=== PATIENT | female | born 1985 | race Caucasian/White ===

== ENCOUNTER → 2019-07-30 | Outpatient (CLI) | payer BC ==
[~2019-07-30] MED LIST: ALBU90OI; HYDACE5 PO; IBUP600 PO; META800 PO; NAPR500 PO; PENVK500 PO; PROM25 PO; RXOXYACE PO; TRAM50 PO
[2019-07-31 15:07] LABS: HPV 16 Negative (Negative); HPV 18 Negative (Negative); HPV OTHER HR TYPES Negative (Negative)
== END | disposition home or self-care (01) ==
LOC: LAB 12:48 → LAB SHORT 12:48
PROVIDERS: Obstetrics & Gynecology
DX: Z12.4 Encounter for screening for malignant neoplasm of cervix (principal)
CPT/HCPCS: 87624; G0123

== ENCOUNTER 2019-11-13 22:38 | Inpatient (IN) | payer BC ==
[~2019-11-13] VITALS: Ht 165.1 cm; Wt 121.2 kg
[2019-11-13] MEDS ORDERED: HYDROCODONE-AC1 EAC1 PO (23:51)
[2019-11-14 01:25] LABS: BASOPHILS ABSOLUTE AUTO 0.05 K/mm3 (0.00-0.23); BASOPHILS PERCENT AUTO 0 % (0-2); EOSINOPHILS ABSOLUTE AUTO 0.13 K/mm3 (0.00-0.68); EOSINOPHILS PERCENT AUTO 1 % (0-6); Hemoglobin 14.1 g/dL (11.5-16.0); IMMATURE GRAN ABSOLUTE AUTO 0.04 K/mm3 (0.00-0.10); IMMATURE GRAN PERCENT AUTO 0 % (0-1); LYMPHOCYTES ABSOLUTE AUTO 1.87 K/mm3 (0.84-5.20); LYMPHOCYTES PERCENT AUTO 16 % (21-46); MONOCYTES ABSOLUTE AUTO 0.71 K/mm3 (0.16-1.47); MONOCYTES PERCENT AUTO 6 % (4-13); Mean Corpuscular HGB 29.6 pg (26.0-34.0); Mean Corpuscular Volume 92 fL (80-100); Mean Platelet Volume 10.4 fL (9.1-12.4); NEUTROPHILS ABSOLUTE AUTO 8.79 K/mm3 (1.96-9.15); NEUTROPHILS PERCENT AUTO 76 % (41-73); Platelet Count 190 K/mm3 (150-400); RDW Coefficient Variation 13.1 % (11.7-14.2); RDW Standard Deviation 44.6 fL (35.1-46.3); Red Blood Cell Count 4.77 M/mm3 (3.80-5.20); White Blood Cell Count 11.59 K/mm3 (4.00-11.30)
[2019-11-14 01:43] LABS: Alanine Aminotransfer (ALT/SGP 27 U/L (12-78); Albumin, Blood 3.7 g/dL (3.4-5.0); Albumin/Globulin Ratio 0.9 (0.8-1.8); Alk Phos 68 U/L (50-136); Anion Gap 8 mmol/L (6-16); Aspartate Aminotrans (AST/SGOT 12 U/L (12-37); Bilirubin, Total 0.3 mg/dL (0.1-1.0); Blood Urea Nitrogen 12 mg/dL (8-24); Bun/Creatinine Ratio 16.2 (12.0-20.0); CO2, Blood 24 mmol/L (21-32); Calcium, Blood 9.2 mg/dL (8.5-10.1); Chloride, Blood 108 mmol/L (98-108); Creatinine, Blood 0.74 mg/dL (0.40-1.00); Glomerular Filtration Rate >60 (60-); Glucose, Blood 110 mg/dL (70-99); Potassium, Blood 4.2 mmol/L (3.5-5.5); Sodium, Blood 140 mmol/L (136-145); Total Protein, Blood 7.7 g/dL (6.4-8.2)
[2019-11-14 03:25] LABS: International Normalized Ratio 0.98; Prothrombin Time Results 10.5 Sec (9.7-11.5)
[2019-11-14] MEDS ORDERED: ESCI10 PO (12:24)
[2019-11-14] MEDS ORDERED: JOLESSA 0.15 M1 EACH PO (12:25)
[2019-11-14] MEDS ORDERED: IBU800 M1 PO (12:26)
--- NOTE | 2019-11-14 12:39 | NUR ---
Echocardiogram completed, stat overread requested and done.
--- NOTE | 2019-11-14 13:25 | NUR ---
REPORT FROM BERNICE HERNANDEZ. PATIENT IS IN LINING CLOSER AT THIS TIME
--- NOTE | 2019-11-14 15:52 | NUR ---
PATIENT C/O PAIN IN LEFT LEG. CALLED DR. BALTAZAR AND REC'D ORDERS TO RESTART HOME MEDS
--- NOTE | 2019-11-14 15:52 | NUR ---
MD VISIT DR. ROGEL IN. WILL REEVALUATE IN 4 HOURS.
--- NOTE | 2019-11-14 15:53 | NUR ---
PATIENT ARRIVED ICU 3 AT 1503. EKOS MACHINES X2. TPA 1MG/HR TO EACH DRUG PORT. HEPARIN 500 UNITS/HR SPLIT BETWEEN EACH SHEATH (2.98 UNITS/KG/HR EACH). NS COOLANT 35 ML/HR TO EACH COOLANT PORT. PARENTS AT BEDSIDE.
--- NOTE | 2019-11-14 16:59 | NUR ---
MD VISIT DR. ROGEL IN. ADVISED OF TROPONIN 1.25. TPA TO 25 ML/HR INSTEAD OF 24 ML/HR.
--- NOTE | 2019-11-14 18:02 | NUR ---
MD VISIT DR. BALTAZAR IN
--- NOTE | 2019-11-14 18:14 | NUR ---
MD VISIT DR. MINER IN
--- NOTE | 2019-11-14 19:23 | NUR ---
TPA TO 12.5 ML/HR (0.5 MG)X2. BM ON BEDPAN. REPORT TO BERNICE ZAPATA AND SHIRA GARCIA RN.
[2019-11-14 20:30] LABS: BASOPHILS ABSOLUTE AUTO 0.02 K/mm3 (0.00-0.23); BASOPHILS PERCENT AUTO 0 % (0-2); EOSINOPHILS ABSOLUTE AUTO 0.05 K/mm3 (0.00-0.68); EOSINOPHILS PERCENT AUTO 1 % (0-6); Hematocrit 42.5 % (33.0-51.0); Hemoglobin 13.9 g/dL (11.5-16.0); IMMATURE GRAN ABSOLUTE AUTO 0.02 K/mm3 (0.00-0.10); IMMATURE GRAN PERCENT AUTO 0 % (0-1); LYMPHOCYTES ABSOLUTE AUTO 1.39 K/mm3 (0.84-5.20); LYMPHOCYTES PERCENT AUTO 13 % (21-46); MONOCYTES PERCENT AUTO 7 % (4-13); Mean Corpuscular HGB 29.4 pg (26.0-34.0); Mean Corpuscular HGB Conc 32.7 g/dL (31.5-36.5); Mean Corpuscular Volume 90 fL (80-100); Mean Platelet Volume 10.3 fL (9.1-12.4); NEUTROPHILS ABSOLUTE AUTO 8.67 K/mm3 (1.96-9.15); NEUTROPHILS PERCENT AUTO 80 % (41-73); Platelet Count 181 K/mm3 (150-400); RDW Coefficient Variation 13.1 % (11.7-14.2); RDW Standard Deviation 43.4 fL (35.1-46.3); Red Blood Cell Count 4.73 M/mm3 (3.80-5.20); White Blood Cell Count 10.85 K/mm3 (4.00-11.30)
--- NOTE | 2019-11-14 23:34 | NUR ---
BEDSIDE REPORT PERFORMED WITH OFFGOING RN AND WITH PATIENT AND FAMILY. QUESTIONS ANSWERED. PARENTS STAYING AT BEDSIDE OVERNIGHT. FAMILY VOUCHES FOR PATIENT THAT SHE HAS BEEN EXERCISING ALL MONTH AT [employer], REDUCING SMOKING, AND OFF CONTROL FOR LAST MONTH. PT HAS A LOW GRADE HEADACHE, AND BELIEVES IT IS FROM LACK OF CAFFEINE. PT STATES SHE DRINKS "A GREAT DEAL" OF COFFEE EVERY DAY. LINES TRACED, PT HAD SMALL AMOUNT OF BLOOD NEAR SITES, BUT PT STATES SHE IS CURRENTLY ON HER PERIOD. PT CLEANED, AND SITES ARE C,D,I.
[2019-11-15 05:11] LABS: BASOPHILS ABSOLUTE AUTO 0.02 K/mm3 (0.00-0.23); BASOPHILS PERCENT AUTO 0 % (0-2); EOSINOPHILS ABSOLUTE AUTO 0.15 K/mm3 (0.00-0.68); EOSINOPHILS PERCENT AUTO 2 % (0-6); IMMATURE GRAN ABSOLUTE AUTO 0.02 K/mm3 (0.00-0.10); IMMATURE GRAN PERCENT AUTO 0 % (0-1); LYMPHOCYTES PERCENT AUTO 26 % (21-46); MONOCYTES ABSOLUTE AUTO 0.77 K/mm3 (0.16-1.47); MONOCYTES PERCENT AUTO 9 % (4-13); Mean Corpuscular HGB 29.5 pg (26.0-34.0); Mean Corpuscular HGB Conc 32.6 g/dL (31.5-36.5); Mean Corpuscular Volume 91 fL (80-100); Mean Platelet Volume 10.2 fL (9.1-12.4); NEUTROPHILS ABSOLUTE AUTO 5.64 K/mm3 (1.96-9.15); NEUTROPHILS PERCENT AUTO 63 % (41-73); Platelet Count 150 K/mm3 (150-400); RDW Coefficient Variation 13.2 % (11.7-14.2); RDW Standard Deviation 44.1 fL (35.1-46.3); Red Blood Cell Count 4.74 M/mm3 (3.80-5.20)
--- NOTE | 2019-11-15 06:39 | NUR ---
PT HEADACHE RELIEVED AT 0500 NEURO CHECK. ICE PACK APPLIED TO BASE OF SKULL, COOL CLOTH TO FACE. FRESH ICE CHIPS AND COLD SODAS GIVEN. ONE ROUND OF PAIN MEDICATION GIVEN. PT STATES SHE IS UNCOMFORTABLE, AND WAS REPOSITIONED TO SOME RELIEF.
--- NOTE | 2019-11-15 09:00 | NUR ---
BEDSIDE REPORT TAKEN AT 0700. DR ROGEL CALLED AND GAVE ORDERS IN PREPARATION TO DC EKO'S LINE. TPA DC'D AND REPLACED WITH NS AT 10CC X2. HEPARIN GTT TO CONTINUE AT CURRENT DOSE OF 2.98UNITS/KG/HR. PT C/O PAIN 4-6/10 TO LOWER BACK AND LEFT CALF (ONLY WHEN SHE MOVES IT OR TO THE TOUCH), HEADACHE GONE. PT DENIES SOB, SATS 99% ON RA. PT DENIES SOB. RIGHT GROIN CATH/SHEATH DRSG C/D/I, R GROIN SOFT, NON-TENDER. CIRC CHECK TO BILAT LOWER EXT WNL. NEURO CHECK WNL. DR ROGEL AT BEDSIDE AT 0830. DR ROGEL DC'D EKO'S LINE. SHEATH REMAINED. HEPARIN GTT DC'D. PTT ORDERED STAT. SHEATH TO BE PULLED AFTER PTT RESULTS. SHEATH TO BE PULLED BY THIS RN PER DR ROGEL; THIS IS A VENOUS LINE. MANUAL PRESSURE TO BE HELD FOR AT LEAST 20MIN. PT TO REMAIN ON BEDREST FOR 2HRS AFTER REMOVAL OF SHEATH. HEPARIN GTT TO BE STARTED PER PHARMACY FOR PE APPROX 1HR AFTER SHEATH REMOVED. VICODIN GIVEN FOR DISCOMFORT.
--- NOTE | 2019-11-15 10:49 | NUR ---
RIGHT VENOUS SHEATH REMOVED AT 1000, MANUAL PRESSURE HELD X20. HEMOSTASIS ACHIEVED AT 1020. DSTAT PLACED. RIGHT GROIN W/O SWELLING, PAIN, BLEEDING, NO HEMATOMA. DR ROGEL IN TO CHECK ON PT. PHARMACY IS MANAGING HEPARIN GTT WHICH WILL START AT 1120. PT TO REMAIN ICU STATUS TODAY.
--- NOTE | 2019-11-15 11:48 | NUR ---
RIGHT GROIN REMIANS STABLE. PT DENIES COMPLAINTS. HOB AT [address] ROGEL AT BEDSIDE TO CHECK ON PT. HEPARIN BOLUS GIVEN FOLLOWED BY GTT AT 16UNITS/KG/HR. VSS
--- NOTE | 2019-11-15 14:22 | NUR ---
DR CUI IN TO SEE PT. PLAN OF CARE DISCUSSED W DR MINER R/T ACTIVITY. OKAY FOR PT TO SHOWER, NEEDS TO USE WHEELCHAIR/SHOWER CHAIR. LIMIT ACTIVITY TODAY. OKAY TO BE UP IN CHAIR. HARLEY TO BE DC'D. R ASHVININ REMAINS STABLE.
--- NOTE | 2019-11-15 16:19 | NUR ---
PT UP TO SHOWER W SPINNING FRAME TENDER ASSIST. RIGHT GROIN REMAINS STABLE. HEP GTT CONT TO INFUSE.
--- NOTE | 2019-11-15 16:43 | NUR ---
SOUZA C'D W/O DIFFICULTY. PT C/ SME DISCOMFORT 5/10 TO LEFT CALF, CNVI 10/19. LEFT CALF SLIHTLY WARM AND FIRM COMPARD TO LEFT CALF. NORCO GIVEN. VSS
--- NOTE | 2019-11-15 17:57 | NUR ---
PT HAS DONE VERY WELL T/O SHIFT TODAY. EKO'S DC'D THIS AM FOLLOWED BY HEP GTT PER PHARMACY FOR PE'S. PT AWAKE AND VISITING W FAMILY AND FRIENDS FOR THE ENTIRE SHIFT. PT DENIED SOB, VSS. C/O SOME LOWER BACK PAIN FROM LYING STILL FOR EKO'S AND C/O SOME MILD/MOD PAIN TO LEFT CALF W MOVEMENT. NORCO PROVIDED ADEQUATE PAIN CONTROL FOR THIS PT. PT OOB TO SHOWER IN SHOWER CHAIR;TOLERATED WELL. HARLEY CH'D WELL.
--- NOTE | 2019-11-15 21:57 | NUR ---
BEDSIDE REPORT GIVEN BY MARLENY QUEEN. PT AND FAMILY PARTICIPATED. PT IN PLEASANT MOOD, ABLE TO AMBULATE WELL, BUT FAVORING LEFT LEG. WARMING PAD ADDED TO LEG PER PT REQUEST. PT STATES IT WORKS WELL MEDICATION. PT HEPARIN FLOWING INTO LEFT AC, LINES FLOWING WELL AND UNKINKED. CALL LIGHT CLOSE TO HAND, BED IN LOWEST POSITION. PT ABLE TO REPOSITION SELF.
--- NOTE | 2019-11-16 06:31 | NUR ---
PT PAIN BETTER TOLERATED THIS EVENING. PT SLEPT AFTER FAMILY LEFT. GROIN SITE STILL CLEAN DRY INTACT.
--- NOTE | 2019-11-16 08:10 | NUR ---
BEDSIDE REPORT TAKEN AT 0700. PT SLEEPING, AROUSES TO VOICE. KPAD TO LEFT CALF. PT C/O PAIN 1-4/10 TO LEFT CALF DEPENDING ON MOVEMENT. PT DENIES SOB. LUNGS CLEAR T/O, SATS 96% ON RA. HEPARIN GTT AT 19UNITS/KG/HR. NORCO GIVEN FOR CALF DISCOMFORT. CALF WARM D/T KPAD;SWELLING NO WORSE THAN YESTERDAY, CIRC CHECK WNL
--- NOTE | 2019-11-16 10:50 | NUR ---
HEPARIN BOLUS OF 4,200UNITS IV GIVEN PER PHARMACY AND HEPARIN GT INCESED FROM 19 TO 21UNITS/KG/HR PER PHARMACY.
--- NOTE | 2019-11-16 14:09 | NUR ---
DR CUI IN TO SEE PT. PT NOW MEDICAL STATUS NO TELE. PT VISITING W FAMILY, LAUGHING/TALKING, DENIES ALL COMPLAINTS.
--- NOTE | 2019-11-16 16:27 | NUR ---
REPORT GIVEN TO MEDICAL FLOOR RN. PT TRANSFERED UP VIA W/C IN STABLE CONDITION
--- NOTE | 2019-11-16 17:06 | NUR ---
Assumed Care Pt transferred from ICU [address] [facility] 343 @ 1650. Received report from BERNICE Sam. Patient arrived to unit via w/c and family at bedside. Heparin remains infusing @ 21 u/kg/hr. Patient settled to room, call light near by, bed in lowest position. Independent in room as tolerated. RA, denies pain. Will continue to monitor until report given to oncoming RN.
--- NOTE | 2019-11-16 20:00 | NUR ---
194 PT SITTING UP IN BED, REPORTS SHARP PAIN OF 6/10 IN L LE, GAVE NORCO, WILL EVAL FOR EFFECT. NO OTHER APPARENT SIGNS OF DISTRESS. CALL LIGHT IS IN REACH.
--- NOTE | 2019-11-16 23:14 | NUR ---
2200 PT LYING IN BED, AWAKE, WATCHING TV. NO APPARENT SIGNS OF DISTRESS. CALL LIGHT IS IN REACH.
--- NOTE | 2019-11-16 23:15 | NUR ---
PT LYING IN BED, AWAKE, DENIES NEED FOR ANYTHING AT THIS TIME. NO APPARENT SIGNS OF DISTRESS. CALL LIGHT IS IN REACH.
--- NOTE | 2019-11-17 04:12 | NUR ---
0323 PT REQUESTED AND RECIEVED PAIN MEDS, WILL EVAL FOR EFFECT. NO OTHER APPARENT SIGNS OF DISTRESS. CALL LIGHT IS IN REACH.
--- NOTE | 2019-11-17 04:12 | NUR ---
0200 PT LYING IN BED, EYES CLOSED, APPEARS TO BE RESTING. BREATHING IS EVEN, UNLABORED. NO APPARENT SIGNS OF DISTRESS. CALL LIGHT IS IN REACH.
--- NOTE | 2019-11-17 04:13 | NUR ---
PT AAO X 4, ON RA. REPORTS PAIN IN L LE, GOT NORCO X 2. HEPARING DRIP DC'D AT HS, XARELTO STARTED.
[2019-11-17 05:25] LABS: BASOPHILS ABSOLUTE AUTO 0.03 K/mm3 (0.00-0.23); BASOPHILS PERCENT AUTO 0 % (0-2); EOSINOPHILS ABSOLUTE AUTO 0.24 K/mm3 (0.00-0.68); EOSINOPHILS PERCENT AUTO 3 % (0-6); Hematocrit 37.2 % (33.0-51.0); Hemoglobin 12.1 g/dL (11.5-16.0); IMMATURE GRAN ABSOLUTE AUTO 0.03 K/mm3 (0.00-0.10); IMMATURE GRAN PERCENT AUTO 0 % (0-1); LYMPHOCYTES ABSOLUTE AUTO 1.77 K/mm3 (0.84-5.20); LYMPHOCYTES PERCENT AUTO 21 % (21-46); MONOCYTES ABSOLUTE AUTO 0.61 K/mm3 (0.16-1.47); MONOCYTES PERCENT AUTO 7 % (4-13); Mean Corpuscular HGB 29.4 pg (26.0-34.0); Mean Corpuscular HGB Conc 32.5 g/dL (31.5-36.5); Mean Corpuscular Volume 90 fL (80-100); Mean Platelet Volume 10.2 fL (9.1-12.4); NEUTROPHILS ABSOLUTE AUTO 5.69 K/mm3 (1.96-9.15); NEUTROPHILS PERCENT AUTO 68 % (41-73); Platelet Count 165 K/mm3 (150-400); RDW Coefficient Variation 13.1 % (11.7-14.2); RDW Standard Deviation 42.9 fL (35.1-46.3); Red Blood Cell Count 4.12 M/mm3 (3.80-5.20); White Blood Cell Count 8.37 K/mm3 (4.00-11.30)
--- NOTE | 2019-11-17 06:18 | NUR ---
PT LYING IN BED, EYES CLOSED, APPEARS TO BE RESTING. BREATHING IS EVEN, UNLABORED. NO APPARENT SIGNS OF DISTRESS. CALL LIGHT IS IN REACH. NO OTHER CHANGES THIS SHIFT.
[2019-11-17] MEDS ORDERED: ACET325 PO (13:11)
[2019-11-17] MEDS ORDERED: XARELTO15 MG PO (13:12)
--- NOTE | 2019-11-17 16:06 | NUR ---
DISCHARGE SUMMARY ARABELLA LEFT WITH HER MOM VIA WHEELCHAIR TO GO HOME. STATES SOME MILD PAIN IN HER LLE FROM THE DVT (DECINED PAIN MEDS), BUT NO REDNESS, AND VERY MILD SWELLING. PIVS REMOVED, PAPERWORK GONE OVER, MEDS FAXED TO PHARMACY, XARELTO PAMPHLETS GIVEN FOR DISCOUNTED [facility]OPE[facility] OF XARELTO. PT STATES SHE HAS F/U APPT AT PCP ALREADY MADE FOR 11/24/19.
== END 2019-11-17 15:03 | disposition home or self-care (01) | DRG 175 ==
LOC: ER 22:38 → ERHOLD 11-14 03:46 → ICUE 11-14 03:46 → MEDS 11-16 16:46
PROVIDERS: Emergency Medicine; Internal Medicine Critical Care Medicine; Internal Medicine Interventional Cardiology; ADMIT Family Medicine
DX: I26.02 Saddle embolus of pulmonary artery with acute cor pulmonale (principal); Z68.42 Body mass index [BMI] 45.0-49.9, adult; I82.402 Acute embolism and thrombosis of unspecified deep veins of left lower extremity; F17.210 Nicotine dependence, cigarettes, uncomplicated; E66.9 Obesity, unspecified; F32.9 Major depressive disorder, single episode, unspecified; I45.10 Unspecified right bundle-branch block; I37.1 Nonrheumatic pulmonary valve insufficiency
CPT/HCPCS: 36014; 36015; 36415; 37211; 51702; 71046; 71260; 76937; 80053; 83880; 84484; 85025; 85379; 85610; 85730; 93005; 93010; 93306; 93971; 96365; 96366; 96376; 99285-25; A9270; A9270-GY; C1757; C1769; C1887; C1894; J1644; J2250; J2997; J3010; J7030; J7040; J7050; Q9967

== ENCOUNTER 2020-09-01 18:51 | Emergency (ER) | payer BC ==
[~2020-09-01] VITALS: Ht 165.1 cm; Wt 124.7 kg
[~2020-09-01 18:51] MED LIST changes: +ACET325 PO; +ESCI10 PO; +HYDROCODONE-AC1 EAC1 PO; +IBU800 M1 PO; +JOLESSA 0.15 M1 EACH PO; +XARELTO15 MG PO
[2020-09-01 19:34] LABS: BASOPHILS ABSOLUTE AUTO 0.05 K/mm3 (0.00-0.23); BASOPHILS PERCENT AUTO 1 % (0-2); EOSINOPHILS ABSOLUTE AUTO 0.06 K/mm3 (0.00-0.68); EOSINOPHILS PERCENT AUTO 1 % (0-6); Hematocrit 42.7 % (33.0-51.0); Hemoglobin 13.9 g/dL (11.5-16.0); IMMATURE GRAN ABSOLUTE AUTO 0.03 K/mm3 (0.00-0.10); IMMATURE GRAN PERCENT AUTO 0 % (0-1); LYMPHOCYTES ABSOLUTE AUTO 2.53 K/mm3 (0.84-5.20); LYMPHOCYTES PERCENT AUTO 23 % (21-46); MONOCYTES ABSOLUTE AUTO 0.67 K/mm3 (0.16-1.47); MONOCYTES PERCENT AUTO 6 % (4-13); Mean Corpuscular HGB Conc 32.6 g/dL (31.5-36.5); Mean Corpuscular Volume 92 fL (80-100); Mean Platelet Volume 10.1 fL (9.1-12.4); NEUTROPHILS ABSOLUTE AUTO 7.46 K/mm3 (1.96-9.15); NEUTROPHILS PERCENT AUTO 69 % (41-73); Platelet Count 272 K/mm3 (150-400); Red Blood Cell Count 4.63 M/mm3 (3.80-5.20)
[2020-09-01 20:01] LABS: Alanine Aminotransfer (ALT/SGP 29 U/L (12-78); Albumin, Blood 3.9 g/dL (3.4-5.0); Albumin/Globulin Ratio 1.1 (0.8-1.8); Alk Phos 81 U/L (50-136); Anion Gap 5 mmol/L (6-16); Aspartate Aminotrans (AST/SGOT 16 U/L (12-37); Bilirubin, Total 0.3 mg/dL (0.1-1.0); Blood Urea Nitrogen 12 mg/dL (8-24); Bun/Creatinine Ratio 15.7 (12.0-20.0); CO2, Blood 29 mmol/L (21-32); Calcium, Blood 9.5 mg/dL (8.5-10.1); Chloride, Blood 105 mmol/L (98-108); Creatinine, Blood 0.77 mg/dL (0.40-1.00); Globulin, Blood 3.6 g/dL (2.2-4.0); Glomerular Filtration Rate >60 (60-); Glucose, Blood 116 mg/dL (70-99); Sodium, Blood 139 mmol/L (136-145); Total Protein, Blood 7.5 g/dL (6.4-8.2); Troponin I <0.015 ng/mL (0.000-0.040)
== END 2020-09-01 22:59 | disposition home or self-care (01) ==
LOC: ER 18:51
PROVIDERS: Emergency Medicine
DX: R06.02 Shortness of breath (principal); Z79.01 Long term (current) use of anticoagulants
CPT/HCPCS: 36415; 71046; 71260; 80053; 84484; 85025; 85379; 93005; 93010; 99284-25; Q9967

== ENCOUNTER → 2021-06-14 | Outpatient (CLI) | payer BC | LOC: LAB 12:52 → LAB SHORT 12:52 | DX: N39.0 Urinary tract infection, site not specified (principal); Z88.1 Allergy status to other antibiotic agents | CPT/HCPCS: 87086 ==

== ENCOUNTER 2022-12-05 11:18 | Emergency (ER) | payer OTHER ==
[~2022-12-05] VITALS: Ht 165.1 cm; Wt 95.7 kg
[2022-12-05 12:31] LABS: Base Excess Venous -0.3 mmol/L; Bicarbonate Venous 23.5 mmol/L (24.0-30.0); PCO2 Venous 41.7 mmHg (38-42); pH Blood Venous 7.38 (7.34-7.37)
[2022-12-05 12:42] LABS: BASOPHILS ABSOLUTE AUTO 0.02 K/mm3 (0.00-0.23); BASOPHILS PERCENT AUTO 0 % (0-2); EOSINOPHILS ABSOLUTE AUTO 0.01 K/mm3 (0.00-0.68); EOSINOPHILS PERCENT AUTO 0 % (0-6); Hematocrit 41.4 % (33.0-51.0); Hemoglobin 14.3 g/dL (11.5-16.0); IMMATURE GRAN ABSOLUTE AUTO 0.01 K/mm3 (0.00-0.10); IMMATURE GRAN PERCENT AUTO 0 % (0-1); LYMPHOCYTES ABSOLUTE AUTO 1.57 K/mm3 (0.84-5.20); LYMPHOCYTES PERCENT AUTO 24 % (21-46); MONOCYTES ABSOLUTE AUTO 0.41 K/mm3 (0.16-1.47); MONOCYTES PERCENT AUTO 6 % (4-13); Mean Corpuscular HGB 30.4 pg (26.0-34.0); Mean Corpuscular HGB Conc 34.5 g/dL (31.5-36.5); Mean Corpuscular Volume 88 fL (80-100); Mean Platelet Volume 10.4 fL (9.1-12.4); NEUTROPHILS ABSOLUTE AUTO 4.46 K/mm3 (1.96-9.15); NEUTROPHILS PERCENT AUTO 69 % (41-73); Platelet Count 253 K/mm3 (150-400); RDW Coefficient Variation 12.4 % (11.7-14.2); RDW Standard Deviation 40.8 fL (35.1-46.3); White Blood Cell Count 6.48 K/mm3 (4.00-11.30)
[2022-12-05 13:00] LABS: Albumin, Blood 4.1 g/dL (3.4-5.0); Albumin/Globulin Ratio 1.2 (0.8-1.8); Bilirubin, Total 0.7 mg/dL (0.1-1.0); Bun/Creatinine Ratio 14.9 (12.0-20.0); Calcium, Blood 9.4 mg/dL (8.5-10.1); Creatinine, Blood 0.67 mg/dL (0.40-1.00); Globulin, Blood 3.4 g/dL (2.2-4.0); Potassium, Blood 3.9 mmol/L (3.5-5.5); Total Protein, Blood 7.5 g/dL (6.4-8.2)
== END 2022-12-05 13:42 | disposition home or self-care (01) ==
LOC: ER 11:18
PROVIDERS: Emergency Medicine
DX: R06.00 Dyspnea, unspecified (principal); J45.909 Unspecified asthma, uncomplicated; F17.210 Nicotine dependence, cigarettes, uncomplicated; Z86.711 Personal history of pulmonary embolism; Z79.899 Other long term (current) drug therapy; Z79.01 Long term (current) use of anticoagulants; Z88.1 Allergy status to other antibiotic agents; Z88.8 Allergy status to other drugs, medicaments and biological substances
CPT/HCPCS: 36415; 71046; 80053; 82803; 83880; 84484; 84703; 85025; 85379; 93005; 93010; 99285-25

== ENCOUNTER 2023-08-14 08:26 | Emergency (ER) | payer OTHER ==
[~2023-08-14] VITALS: Ht 165.1 cm; Wt 104.3 kg
[~2023-08-14 08:26] MED LIST changes: -XARELTO15 MG PO; +XARELTO20 MG PO
[2023-08-14] MEDS ORDERED: TOPI50 PO (08:55)
[2023-08-14] MEDS ORDERED: Aldactone50 MG PO (08:57)
[2023-08-14 09:45] VITALS: BP 104/69
[2023-08-14] MEDS ORDERED: METO10 PO (11:17)
[2023-08-14] MEDS ORDERED: Robaxin750 MG PO (11:17)
== END 2023-08-14 11:28 | disposition home or self-care (01) ==
LOC: ER 08:26
DX: S16.1XXA Strain of muscle, fascia and tendon at neck level, initial encounter (principal); M62.830 Muscle spasm of back; G43.909 Migraine, unspecified, not intractable, without status migrainosus; F17.210 Nicotine dependence, cigarettes, uncomplicated; V40.5XXA Car driver injured in collision with pedestrian or animal in traffic accident, initial encounter; Z88.8 Allergy status to other drugs, medicaments and biological substances; Z79.02 Long term (current) use of antithrombotics/antiplatelets; Z79.899 Other long term (current) drug therapy
CPT/HCPCS: 70450; 72125; 96372; 99284-25; A9270; J1790

== ENCOUNTER → 2024-07-29 | Outpatient (CLI) | payer OTHER ==
[~2024-07-29] MED LIST changes: +Aldactone50 MG PO; +METO10 PO; +Robaxin750 MG PO; +TOPI50 PO
[2024-08-12 09:20] LABS: HPV HIGH RISK BY TMA Not Detected; HPV SOURCE Cervical
== END ==
LOC: LAB 14:30 → LAB SHORT 14:30
PROVIDERS: Physician Assistant
DX: Z01.419 Encounter for gynecological examination (general) (routine) without abnormal findings (principal)
CPT/HCPCS: 87624; G0123